=== PATIENT | male | born 1970 | race African-American/Black ===

== ENCOUNTER 2017-10-02 10:08 | Outpatient (CLI) | payer BC ==
--- NOTE | 2017-10-02 12:49 | CT ---
ABDOMEN AND PELVIS CT WITH CONTRAST: CLINICAL HISTORY: A 47-year-old male with epigastric pain. COMPARISON: 03/28/2009 FINDINGS: There has been a prior cholecystectomy. No acute abnormality of the solid abdominal organs. The sma ll bowel is normal in caliber. There is a normal caliber, partially air filled appendix visualized. Colonic diverticulosis is present. No free air or free fluid. Mild vascular calcification is prese nt. The abdominal aorta is normal in caliber. There is mild atelectasis at the lung bases. There i s no evidence of an acute osseous abnormality. Scattered osseous degenerative change is present. IMPRESSION: 1. No acute abnormality identified. 2. Mild colonic diverticulosis. POS: [facility]
[2017-10-02] MEDS ORDERED: Iopamidol 370 76% 100 ML VIAL ONE (17:05)
== END 2017-10-02 10:09 | disposition home or self-care (01) ==
LOC: CT 10:08
PROVIDERS: ATTEND Internal Medicine Gastroenterology
DX: R10.13 Epigastric pain (principal); Z80.0 Family history of malignant neoplasm of digestive organs; R89.9 Unspecified abnormal finding in specimens from other organs, systems and tissues; K57.30 Diverticulosis of large intestine without perforation or abscess without bleeding
CPT/HCPCS: 74177

== ENCOUNTER 2018-08-25 07:31 | Outpatient (CLI) | payer BC, OTHER ==
[2018-08-25] MEDS ORDERED: Regadenoson 0.4 MG/5 ML SYRINGE ONE (09:52)
--- NOTE | 2018-08-26 11:36 | NM ---
MYOCARDIAL PERFUSION SCAN: Technique: Patient was given 33 mCi Technetium 99M Sestamibi for rest imaging and 28 mCi Technetium 9 9M Sestamibi for stress imaging. Patient was stressed according to Lexiscan protocol. Indications: Ischemic cardiomyopathy. FINDINGS: There is decreased activity in the inferior wall consistent with inferior wall scar. There is increas ed activity in the inferior wall on the rest images suggesting lorena infarct reversibility. Wall motion shows septal hypokinesis and inferior wall dyskinesis with ejection fraction recorded at 49%. IMPRESSION: Inferior wall scar with evidence of inferior wall periinfarct reversibility. POS: [facility]
== END 2018-08-25 07:32 | disposition home or self-care (01) ==
LOC: NM 07:31
PROVIDERS: ATTEND Internal Medicine Cardiovascular Disease
DX: Z01.810 Encounter for preprocedural cardiovascular examination (principal); I25.5 Ischemic cardiomyopathy; Z95.1 Presence of aortocoronary bypass graft; I44.2 Atrioventricular block, complete; E78.00 Pure hypercholesterolemia, unspecified; I10 Essential (primary) hypertension; G47.33 Obstructive sleep apnea (adult) (pediatric); E66.01 Morbid (severe) obesity due to excess calories; Z72.0 Tobacco use; I21.9 Acute myocardial infarction, unspecified
CPT/HCPCS: 78452; 93017; A9500; J2785

== ENCOUNTER 2023-06-27 17:00 | Outpatient (CLI) | payer BC | END 2023-06-27 17:01 | disposition home or self-care (01) | LOC: SLEEPLAB 17:00 | PROVIDERS: ATTEND Nurse Practitioner Family | DX: G47.33 Obstructive sleep apnea (adult) (pediatric) (principal); I10 Essential (primary) hypertension; I63.9 Cerebral infarction, unspecified; G45.9 Transient cerebral ischemic attack, unspecified; R53.83 Other fatigue; R06.83 Snoring; E66.9 Obesity, unspecified; Z68.43 Body mass index [BMI] 50.0-59.9, adult | CPT/HCPCS: 95810 ==

== ENCOUNTER 2023-09-05 17:00 | Outpatient (CLI) | payer BC | END 2023-09-05 17:01 | disposition home or self-care (01) | LOC: SLEEPLAB 17:00 | PROVIDERS: ATTEND Nurse Practitioner Family | DX: G47.33 Obstructive sleep apnea (adult) (pediatric) (principal); I10 Essential (primary) hypertension; I63.9 Cerebral infarction, unspecified; G45.9 Transient cerebral ischemic attack, unspecified; E66.9 Obesity, unspecified; R06.83 Snoring; R53.83 Other fatigue; I44.1 Atrioventricular block, second degree | CPT/HCPCS: 95811 ==